=== PATIENT | female | born 1935 | race Caucasian/White ===

== ENCOUNTER 2018-01-13 07:38 | Day surgery (SDC) | payer OTHER ==
[2018-01-12 14:48] VITALS: BMI 32.3
--- NOTE | 2018-01-13 08:43 | HP ---
Admitting History and Physical - Admission History of Present Illness: Patient is a 82-year-old female with a past medical history of depression, colon CA stage IV (remission), and hypertension. Patient was recently discharged from [facility] last week after a 2 month admission Or depression. Patient receivedECT treatments for hospitalization. Patient does report improvement after ECT. She reports compliance with prescribed medications. She denies any visual or auditory hallucinations or homicidal or suicidal ideation. Patient denies any recent illnesses. History Source: Patient, Family Member, Medical Record Limitations to Obtaining History: No Limitations - Past Medical History Cardiovascular: Yes: HTN ...: No Psych: Yes: Depression - Advance Directives Advance Directives: Yes: Health Care Proxy - Smoking History Smoking history: Never smoked Have you smoked in the past 12 months: No - Alcohol/Substance Use Hx Alcohol Use: No History of Substance Use: reports: None - Social History Usual Living Arrangement: Yes: Assisted Living ADL: Independent History of Recent Travel: No Home Medications - Allergies Allergies/Adverse Reactions: Allergies Allergy/AdvReac Type Severity Reaction Status Date / Time No Known Drug Allergies Allergy Verified 01/12/18 14:25 - Home Medications Home Medications: Ambulatory Orders Losartan Potassium [Cozaar] 25 mg PO DAILY 01/12/18 Risperidone [Risperdal] 4 mg PO HS 01/12/18 Sertraline HCl [Zoloft -] 150 mg PO DAILY 01/12/18 clonazePAM [Klonopin -] 0.5 mg PO HS 01/12/18 Family Disease History - Family Disease History Family History: Denies Review of Systems - Review of Systems Constitutional: reports: No Symptoms Eyes: reports: No Symptoms HENT: reports: No Symptoms Neck: reports: No Symptoms Cardiovascular: reports: No Symptoms Respiratory: reports: No Symptoms Gastrointestinal: reports: No Symptoms Genitourinary: reports: No Symptoms Musculoskeletal: reports: No Symptoms Integumentary: reports: No Symptoms Neurological: reports: No Symptoms Endocrine: reports: No Symptoms Hematology/Lymphatic: reports: No Symptoms Psychiatric: reports: Depression Physical Examination Vital Signs: Vital Signs Temperature 97.8 F 01/13/18 08:07 Pulse Rate 56 L 01/13/18 08:07 Respiratory Rate 18 01/13/18 08:07 Blood Pressure 110/69 01/13/18 08:07 O2 Sat by Pulse Oximetry (%) 98 01/13/18 08:07 Constitutional: Yes: Well Nourished, No Distress, Calm Eyes: Yes: WNL, Conjunctiva Clear, EOM Intact HENT: Yes: WNL, Atraumatic, Normocephalic Neck: Yes: WNL, Supple, Trachea Midline Cardiovascular: Yes: WNL, Regular Rate and Rhythm, S1, S2 Respiratory: Yes: WNL, Regular, CTA Bilaterally Gastrointestinal: Yes: WNL, Normal Bowel Sounds, Soft ...Rectal Exam: Yes: Deferred Renal/: Yes: WNL Musculoskeletal: Yes: WNL Extremities: Yes: WNL Edema: No Peripheral Pulses WNL: Yes Peripheral Pulses: Left Radial: 4+, Right Radial: 4+, Left Doralis Pedis: 3+, Right Dorsalis Pedis: 3+, Left Femoral: 3+, Right Femoral: 3+ Integumentary: Yes: WNL Neurological: Yes: WNL, Alert, Oriented ...Motor Strength: WNL Psychiatric: Yes: WNL, Alert, Oriented Labs: reviewed 01/12/18 Imaging - Results EKG: Report Reviewed, Other (nsr) Assessment/Plan patient is a 82 y/o female that presents for ect, labs and ekg reviewed patient is medically optimized for procedure informed consent, risks/benefits to be obtained by Dr Martinez
[2018-01-13] MEDS ORDERED: KETAMINE HCL 500 MG/10 ML VIAL ONE (09:29)
[2018-01-13 11:26] VITALS: TEMP 97.5
[2018-01-13 11:34] VITALS: BP 124/62; PULSE 56
--- NOTE | 2018-01-13 14:00 | EKG ---
Test Reason : Blood Pressure : / mmHG Vent. Rate : 056 BPM Atrial Rate : 056 BPM P-R Int : 164 ms QRS Dur : 090 ms QT Int : 460 ms P-R-T Axes : 034 -22 027 degrees QTc Int : 443 ms SINUS BRADYCARDIA CANNOT RULE OUT ANTERIOR INFARCT , AGE UNDETERMINED ABNORMAL ECG NO PREVIOUS ECGS AVAILABLE Confirmed by DEONDRE DESHPANDE MD ([id number]) on 01/13/2018 2:00:23 PM Referred By: Jluis Martinez Confirmed By:DEONDRE DESHPANDE MD
== END 2018-01-13 11:20 | disposition home or self-care (01) ==
LOC: FECT 07:38
PROVIDERS: ATTEND Psychiatry & Neurology Psychiatry
PROC: GZB4ZZZ Other Electroconvulsive Therapy (ICD-10-PCS; principal; 2018-01-13 09:00)
DX: F33.2 Major depressive disorder, recurrent severe without psychotic features (principal)
CPT/HCPCS: 90870; 93005; 94760

== ENCOUNTER 2018-01-23 05:49 | Day surgery (SDC) | payer OTHER ==
[2018-01-23 07:21] VITALS: BMI 32.3
[2018-01-23] MEDS ORDERED: KETAMINE HCL 500 MG/10 ML VIAL ONE (07:53)
[2018-01-23 09:28] VITALS: TEMP 97.6
[2018-01-23 09:43] VITALS: BP 112/60; PULSE 69
== END 2018-01-23 09:45 | disposition home or self-care (01) ==
LOC: FECT 05:49
PROVIDERS: ATTEND Psychiatry & Neurology Psychiatry
PROC: GZB4ZZZ Other Electroconvulsive Therapy (ICD-10-PCS; principal; 2018-01-23 08:00)
DX: F33.2 Major depressive disorder, recurrent severe without psychotic features (principal)
CPT/HCPCS: 90870; 94760

== ENCOUNTER 2018-01-30 05:53 | Day surgery (SDC) | payer OTHER ==
[2018-01-23 10:17] VITALS: BMI 32.3
[2018-01-30 07:38] VITALS: TEMP 97.9
[2018-01-30] MEDS ORDERED: KETAMINE HCL 500 MG/10 ML VIAL ONE (08:02)
[2018-01-30 09:20] VITALS: PULSE 56
[2018-01-30 09:42] VITALS: BP 122/78
== END 2018-01-30 09:35 | disposition home or self-care (01) ==
LOC: FECT 05:53
PROVIDERS: ATTEND Psychiatry & Neurology Psychiatry
PROC: GZB4ZZZ Other Electroconvulsive Therapy (ICD-10-PCS; principal; 2018-01-30 08:00)
DX: F33.2 Major depressive disorder, recurrent severe without psychotic features (principal)
CPT/HCPCS: 90870; 94760

== ENCOUNTER 2018-02-07 05:44 | Day surgery (SDC) | payer OTHER ==
[2018-01-30 13:00] VITALS: BMI 32.3
[2018-02-07] MEDS ORDERED: ONDANSETRON 4 MG/2 ML VIAL IVPUSH PRN (07:18)
[2018-02-07] MEDS ORDERED: KETAMINE HCL 500 MG/10 ML VIAL ONE (08:08)
[2018-02-07 09:42] VITALS: TEMP 97.4
[2018-02-07 09:43] VITALS: BP 135/69; PULSE 66
--- NOTE | 2018-02-07 09:47 | HP ---
CHIEF COMPLAINT: Major Depressive Disorder PCP: Dr. Jesus Wallis [place] Primary Psych: Dr. Forman, [facility] HISTORY OF PRESENT ILLNESS: 82 year-old female with a PMH significant for HTN, colon cancer in remission x 23 years, and major depressive disorder. Patient started ECT in December 2017 while hospitalized at [facility]. She presents today for ECT Recent events: None- no change in meds Recent Travel: No PAST MEDICAL HISTORY: Hypertension Colon cancer Major depressive disorder PAST SURGICAL HISTORY: Colon resection Partial bladder resection Hysterectomy Social History: lives alone in assisted living, [facility] Smoking: never Alcohol: no Drugs: no Family History: Allergies No Known Drug Allergies Allergy (Verified 01/12/18 14:25) HOME MEDICATIONS: Home Medications Medication Instructions Recorded Losartan Potassium [Cozaar] 25 mg PO DAILY 01/12/18 Risperidone [Risperdal] 4 mg PO HS 01/12/18 Sertraline HCl [Zoloft -] 150 mg PO DAILY 01/12/18 clonazePAM [Klonopin -] 0.5 mg PO HS 01/12/18 REVIEW OF SYSTEMS CONSTITUTIONAL: Absent: fever, chills, diaphoresis, generalized weakness, malaise, loss of appetite, weight change HEENT: Absent: rhinorrhea, nasal congestion, throat pain, throat swelling, difficulty swallowing, mouth swelling, ear pain, eye pain, visual changes CARDIOVASCULAR: Absent: chest pain, syncope, palpitations, irregular heart rate, lightheadedness , peripheral edema RESPIRATORY: Absent: cough, shortness of breath, dyspnea with exertion, orthopnea, wheezing, stridor, hemoptysis GASTROINTESTINAL: Absent: abdominal pain, abdominal distension, nausea, vomiting, diarrhea, constipation, melena, hematochezia GENITOURINARY: Absent: dysuria, frequency, urgency, hesitancy, hematuria, flank pain, genital pain MUSCULOSKELETAL: Absent: myalgia, arthralgia, joint swelling, back pain, neck pain SKIN: Absent: rash, itching, pallor HEMATOLOGIC/IMMUNOLOGIC: Absent: easy bleeding, easy bruising, lymphadenopathy, frequent infections ENDOCRINE: Absent: unexplained weight gain, unexplained weight loss, heat intolerance, cold intolerance NEUROLOGIC: Absent: headache, focal weakness or paresthesias, dizziness, unsteady gait, seizure, mental status changes, bladder or bowel incontinence PSYCHIATRIC: Absent: anxiety, depression, suicidal or homicidal ideation, hallucinations. PHYSICAL EXAMINATION Vital Signs - 24 hr 02/07/18 02/07/18 02/07/18 07:28 08:45 08:50 Temperature 98.0 F Pulse Rate 54 L 72 69 Respiratory 18 20 18 Rate Blood Pressure 118/66 131/55 L 123/59 L O2 Sat by Pulse 94 L 94 L 95 Oximetry (%) GENERAL: Awake, alert, and fully oriented, in no acute distress. EYES: Pupils equal, round and reactive to light, extraocular movements intact, sclera anicteric, conjunctiva clear. No lid lag. LUNGS: Breath sounds equal, clear to auscultation bilaterally. No wheezes, and no crackles. No accessory muscle use. HEART: Regular rate and rhythm, normal S1 and S2 ABDOMEN: Soft, nontender, not distended MUSCULOSKELETAL: Normal range of motion at all joints. No bony deformities or tenderness. No CVA tenderness. UPPER EXTREMITIES: 2+ pulses, warm, well-perfused. No cyanosis. No clubbing. No peripheral edema. LOWER EXTREMITIES: 2+ pulses, warm, well-perfused. No calf tenderness. No peripheral edema. NEUROLOGICAL: Cranial nerves II-XII intact. Normal speech. ASSESSMENT/PLAN: 82 year-old female with a PMH significant for HTN, colon cancer in remission x 23 years, and major depressive disorder. She presents today for ECT Cardiac --Hypertension --BP well-controlled on current meds --Revised Cardiac Risk Index for Pre-Operative Risk: 0 points, 0.4% risk of major cardiac event Pulmonary --no pulmonary history Neurological --no neurological or neurosurgical history; no history of trauma Anesthesia --no known history of problems with anesthesia ECT is a low risk procedure. The relative benefits of the planned procedure outweigh the relative risks for this patient at this time. Visit type - Emergency Visit Emergency Visit: No - New Patient This patient is new to me today: Yes Date on this admission: 02/07/18 - Critical Care Critical Care patient: No
== END 2018-02-07 09:55 | disposition home or self-care (01) ==
LOC: FECT 05:44
PROVIDERS: ATTEND Psychiatry & Neurology Psychiatry
PROC: GZB4ZZZ Other Electroconvulsive Therapy (ICD-10-PCS; principal; 2018-02-07 07:45)
DX: F32.9 Major depressive disorder, single episode, unspecified (principal)
CPT/HCPCS: 90870; 94760